=== PATIENT | female | born 1955 | race Caucasian/White ===

== ENCOUNTER 2017-06-28 05:19 | Day surgery (SDC) | payer OTHER ==
[~2017-06-28] VITALS: Ht 149.9 cm; Wt 81.2 kg
--- NOTE | ~2017-06-28 | EKG ---
[address] [address] ELECTROCARDIOGRAM REPORT Name: JACOBO CUADRA Room #: [address] [place] [address]#: [id number] Admission: 06/28/17 Attend Phys: Robles Cardoso MD Discharge: Date of : 53 Report #: [id number] THIS REPORT FOR: //name// [facility] Test Date: 2017-06-28 Test Time: 06:50:39 Pat Name: JACOBO CUADRA Department: Room: [facility] Gender: F Civil Engineering Director: DULCE MARIA : 1955 Requested By: Robles Cardoso Order Number: [id number] MD: Shawn Carter Measurements Intervals [place] Rate: 94 P: 52 CA: 162 QRS: 4 QRSD: 86 T: 27 QT: 404 QTc: 506 Interpretive Statements Sinus rhythm Prolonged QT interval Compared to ECG 07/24/2015 06:42:11 No significant change was found Electronically Signed On 06-28-2017 8:11:19 CDT by Shawn Carter [email or web address] <ELECTRONICALLY SIGNED> By: Shawn Carter MD, [facility] 06/28/17 0811 0650 0650 Shawn Carter MD, [facility] /EPI
--- NOTE | ~2017-06-28 | O ---
[facility] [place] [address] OPERATIVE REPORT Name: JACOBO CUADRA Room #: DEP [facility]#: [id number] Admission: 06/28/17 Attend Phys: Robles Cardoso MD Discharge: 06/28/17 Date of : 53 Report #: [id number] THIS REPORT FOR: //name// CC: Isra Cardoso DATE OF SERVICE: 06/28/2017 PREOPERATIVE DIAGNOSES: Abnormal microcalcification of left breast at 12 o'clock and 2 o'clock. History of right breast cancer, triple negative. POSTOPERATIVE DIAGNOSES: Abnormal microcalcification of left breast at 12 o'clock and 2 o'clock. History of right breast cancer, triple negative. PROCEDURE PERFORMED: Excisional biopsy of abnormal microcalcification with preop needle loc at 12 o'clock and excisional biopsy of abnormal microcalcification with preop needle loc at 2 o'clock. ANESTHESIA: General LMA. SURGEON: Robles Cardoso MD COMPLICATIONS: None. BLOOD LOSS: 10 mL. SPECIMEN: Mammogram confirms removal of the microcalcification from both areas. PROCEDURE NOTE: With the patient under general anesthesia, the left breast was prepped and draped in a sterile fashion. The needle was also prepped in the field. Timeout was performed. The patient did receive preop IV antibiotics. A 0.25% Marcaine was used to anesthetize the skin. A small ellipse of skin was excised over the superior 12 o'clock needle site. This surrounded the needle. This was then dissected into the breast tissue, at which point, dissection was then carried away from the needle about a centimeter and a half. This was carried down to the deeper part of breast tissue. In the lateral aspect, there is a pretty sick breast tissue found. Specimen was just carried down to the tip of the needle. This is posterior to the main breast tissue area. Specimen was labeled superior 12 o'clock mass. Cautery was used for hemostasis. The cavity was packed with moistened gauze. Dissection was then carried out of the 2 o'clock. The needle was slightly more superficial. This actually ____ lateral to medial direction to the 2 o'clock position. Again, small ellipse of skin was removed including the needle. Dissection was then carried down into the breast tissue. The needle was not in very well and actually dislodged, but the wire was pointing to the location. ____ removed this breast tissue in this particular space. This dissection was carried down to the edge of the [facility] [address] [place] [address] OPERATIVE REPORT Name: JACOBO CUADRA Room #: DEP [facility]#: [id number] Admission: 06/28/17 Attend Phys: Robles Cardoso MD Discharge: 06/28/17 Date of : 53 Report #: [id number] pectoralis minor muscle. Both specimens were sent to mammography. The lateral biopsy actually included the microcalcification and also more medial breast tissue. Margins were wider. The calcification was seen at the tip of the specimen, but is definitely removed. Both cavities were irrigated. I do not feel or see any abnormality in the rest of the remaining breast tissue. The 2 cavities actually connected. Subcutaneous tissue was reapproximated with 4-0 PDS. The skin was then closed with 5-0 PDS. Dermabond was applied. 4 x 4 and OpSite used for dressing. The patient tolerated procedure well. By: [id number] Robles Cardoso MD /nt
--- NOTE | ~2017-06-28 | S ---
[facility] [address] [place] [address] SURGICAL PATH RPT PROCEDURE Name: JACOBO CUADRA Room #: DEP [facility] M.R.#: [id number] Admission: 06/28/17 Date of : 53 Discharge: 06/28/17 Report #: [id number] Path Case #: [id number] PATHOLOGY REPORT DRAFT COLLECTION DATE: 06/28/2017 RECEIVED DATE: 06/28/2017 SPECIMEN(S) RECEIVED: A.Superior breast 12:00 B.Lateral breast 2:00
[~2017-06-28 05:19] MED LIST: ACETAMINOPHEN325 MG PO; ADVAIR 250-501 EACH INH; ADVAIR HFA 230M12 GM INH; AMBIEN 5 MG TABL5 M1 PO; APAP650 PO; ARTIFICIAL TEAR15 M1 OPHTHALMIC; BACTROBAN CREAM30 G2 NASAL; BUSPIRONE HCL10 MG PO; CAL-GEST PO; CALCIUM 600 +1 EAC1 PO; CALCIUM CARBONATE PO; CENTRUM SILVER1 EAC4 PO; CLARITIN10 MG PO; DELSYM COU30 MG/5 M1 PO; FENTANYL PA12 MCG/H1 TP; FLOMAX0.4 MG PO; FREEZE IT RE113.4 GM TP; HYDROXYCHLOROQ200 M1 PO; IPRAT-ALBUT 0.5-3 ML; IPRAT-ALBUT 0.5-3 ML INH; IRON325 PO; LEVEMIR SUBQ; LEVOTHYROXIN0.112 M1 PO; LISINOPRIL20 MG PO; LOPERAMIDE 2 MG2 M1 PO; MIRALAX17 GM PO; MIRALAX255 GM PO; MUPIROCIN22 GM; NEURONTIN600 MG PO; NORVASC10 MG PO; OCEAN45 ML; ONDANSETRON HCL4 M2 PO; OXYCONTIN10 M1 PO; PANTOPRAZOLE SO40 M1 PO; PILOCARPINE HCL5 M1 PO; PRINIVIL10 MG PO; REQUIP 0.25 M0.25 MG PO; SERTRALINE HCL50 MG PO; SINGULAIR 10 MG10 M1 PO; SPIRIVA INH; TRAMADOL 50 MG50 MG PO; TYLENOL325 MG PO; ZANTAC 150MG T150 MG PO; ZOCOR20 MG PO
[2017-06-28 07:22] LABS: HEMATOCRIT 39.9 % (37.0-47.0); HEMOGLOBIN 13.7 gm/dL (12.0-15.0)
[2017-06-28 08:03] VITALS: BP 145/68
[2017-06-28] MEDS ORDERED: NORCO 5-325 TA1 EACH PO (11:37)
[2017-06-28 11:58] VITALS: BP 145/68
== END 2017-06-28 12:55 | disposition home or self-care (01) ==
LOC: TBA 05:19 → OR 05:19 → ORMALL 11:30 → OR 12:55
PROVIDERS: Surgery
DX: R92.0 Mammographic microcalcification found on diagnostic imaging of breast (principal); F32.9 Major depressive disorder, single episode, unspecified; E11.9 Type 2 diabetes mellitus without complications; J44.9 Chronic obstructive pulmonary disease, unspecified; Z85.038 Personal history of other malignant neoplasm of large intestine; Z90.49 Acquired absence of other specified parts of digestive tract; Z86.2 Personal history of diseases of the blood and blood-forming organs and certain disorders involving the immune mechanism; I10 Essential (primary) hypertension; E03.8 Other specified hypothyroidism; M06.80 Other specified rheumatoid arthritis, unspecified site; K21.9 Gastro-esophageal reflux disease without esophagitis
CPT/HCPCS: 50010; 50101; 50386; 50417; 54118; 56525; 56526; 62110; 62900; 70005